=== PATIENT | male | born 1970 | race Caucasian/White ===

== ENCOUNTER 2018-10-11 19:16 | Emergency (ER) | payer MEDICAID ==
[~2018-10-11] VITALS: Ht 170.2 cm; Wt 99.8 kg
[2018-10-11 19:25] VITALS: BP 147/73
--- NOTE | 2018-10-11 19:30 | NUR ---
PT AMBULATED TO BED 12. PROVIDED WITH URINE CUP. UNABLE TO URINATE AT THIS TIME.
--- NOTE | 2018-10-11 19:33 | NUR ---
PT AMBULATED FROM ER BED 12 TO ER BED 8
--- NOTE | 2018-10-11 19:53 | NUR ---
C/O TESTICULAR PAIN/SWELLING X 2 WEEKS. PT REPORTS HX OF CIRROSIS. PT HAS EDEMA TO BLL +2 PITTING. DENIES N/V/D/FEVER/INJURY. PT REPORTS HE HAS HAD THIS PROBLEM OFF AND ON FOR 2 MONTHS BUT HAS BEEN CONSTANT FOR THE LAST 2 WEEKS. PT STATES HE HAS BEEN HAVING TROUBLE URINATING AND ONLY A SMALL AMOUNT COMES OUT AT A TIME. TESTICLES ARE VERY SWOLLEN AND PINK. NO OPEN WOUNDS. PT GIVEN CUP & URINAL FOR URINE, AND PLACED IN GOWN. BED IN LOW POSITION, GIRLFRIEND AT BEDSIDE
--- NOTE | 2018-10-11 20:16 | NUR ---
ERMD AT BEDSIDE
[2018-10-11 21:22] LABS: BASOPHILS % (AUTO) 0.8 % (0.0-2.0); EOSINOPHILS # (AUTO) 0.1 K/uL (0-0.4); EOSINOPHILS % (AUTO) 2.7 % (0.0-4.0); HEMATOCRIT 23.5 % (36-52); MEAN CORPUSCULAR HEMOGLOBIN 35 pg (27-31); MEAN CORPUSCULAR HGB CONC 34 g/dL (33-37); MEAN CORPUSCULAR VOLUME 101.9 fL (80-94); MONOCYTES # (AUTO) 0.5 K/uL (0.8-1.0); MONOCYTES % (AUTO) 15.7 % (1.7-9.3); NEUTROPHILS # (AUTO) 1.7 K/uL (1.8-7.7); NEUTROPHILS % (AUTO) 51.8 % (42.2-75.2); PLATELET COUNT (AUTO) 48 K/uL (140-450); RED BLOOD CELL COUNT(AUTO) 2.31 MIL/uL (4.20-6.10); RED CELL DISTRIBUTION WIDTH 15.1 % (11.6-13.7); WHITE BLOOD COUNT (AUTO) 3.3 K/uL (4.8-10.8)
[2018-10-11 21:26] LABS: APPEARANCE,URINE SL CLOUDY (CLEAR); BILIRUBIN,URINE 1+ (NEGATIVE); BLOOD, URINE 3+ (NEGATIVE); COLOR,URINE BROWN (YELLOW); LEUKOCYTE ESTERASE ,URINE TRACE (NEGATIVE); NITRITE, URINE NEGATIVE (NEGATIVE); UGLUCOSE NEGATIVE (NEGATIVE)
--- NOTE | 2018-10-11 21:30 | NUR ---
RECIEVED REPORT FROM GLENDY SANABRIA, VSS
[2018-10-11 21:34] LABS: ANION GAP 10.4 (8-16); CARBON DIOXIDE 25.3 mmol/L (21-32); CREATININE 1.5 mg/dL (0.7-1.3); POTASSIUM 3.7 mmol/L (3.5-5.1)
[2018-10-11 21:38] LABS: RBC,URINE TOO NUMEROUS TO COUN /HPF (0-5); WBC,URINE 0-5 /HPF (0-5)
[2018-10-11 21:40] LABS: ALBUMIN 2.2 g/dL (3.4-5.0)
[2018-10-11 21:43] LABS: PROTHROMBIN TIME 16.1 secs (10.8-13.4)
[2018-10-11 23:11] VITALS: BP 131/86
--- NOTE | 2018-10-11 23:11 | NUR ---
Patient discharged with v/s stable. Written and verbal after care instructions given and explained. Patient alert, oriented and verbalized understanding of instructions. Ambulatory with steady gait. All questions addressed prior to discharge. ID band removed. Patient advised to follow up with PMD. Rx of LASIX, DOXYCYCLINE AND BENADRYL WERE given. Patient educated on indication of medication including possible reaction and side effects. Opportunity to ask questions provided and answered. PT STATED HIS PAIN LEVEL HAS DECREASED SINCE HE CAME INTO ER. PAIN LEVEL WAS A 2/10 AT THIS TIME.
== END 2018-10-11 23:11 | disposition home or self-care (01) ==
LOC: MED 19:16
DX: N50.82 Scrotal pain (principal)
CPT/HCPCS: 36415; 76705; 76870; 80053; 81001; 83690; 85025; 85610; 99284; Q0092